=== PATIENT | female | born 1975 | race Caucasian/White ===

== ENCOUNTER 2025-09-20 22:42 | Emergency (ER) | payer BC ==
[2025-09-20] MEDS ORDERED: Rabies Vaccine Human 2.5 UNITS VIAL IM ONE (23:30)
[2025-09-20] MEDS ORDERED: Rabies Immune Globulin/PF 300 UNITS/ML VIAL IM SCH (23:30)
== END 2025-09-21 00:15 | disposition home or self-care (01) ==
LOC: CSHERS 22:42
DX: S61.251A Open bite of left index finger without damage to nail, initial encounter (principal); Z55.6 Problems related to health literacy; Z23 Encounter for immunization; W64.XXXA Exposure to other animate mechanical forces, initial encounter
CPT/HCPCS: 90375; 90675

== ENCOUNTER 2025-09-23 07:45 | Day surgery (SDC) | payer BC ==
[2025-09-23] MEDS ORDERED: Rabies Vaccine Human 2.5 UNITS VIAL IM ONE (08:45)
== END 2025-09-23 09:10 | disposition home or self-care (01) ==
LOC: CSHER/OP 07:45
PROVIDERS: ATTEND Emergency Medicine
DX: Z29.14 Encounter for prophylactic rabies immune globulin (principal)
CPT/HCPCS: 90675

== ENCOUNTER → 2025-09-27 | Day surgery (SDC) | payer BC ==
[~2025-09-27] MED LIST: Rabies Vaccine Human 2.5 UNITS VIAL IM ONE
== END ==
LOC: CSHER/OP 07:55
PROVIDERS: ATTEND Emergency Medicine
DX: Z29.14 Encounter for prophylactic rabies immune globulin (principal)
CPT/HCPCS: 90675

== ENCOUNTER 2025-10-04 07:19 | Day surgery (SDC) | payer BC ==
[2025-10-04] MEDS ORDERED: Rabies Vaccine Human 2.5 UNITS VIAL IM ONE (07:30)
== END 2025-10-04 07:20 | disposition home or self-care (01) ==
LOC: CSHER/OP 07:19 → EDSTATUS 14:47
PROVIDERS: ATTEND Student in an Organized Health Care Education/Training Program
DX: Z29.14 Encounter for prophylactic rabies immune globulin (principal)
CPT/HCPCS: 90471; 90675